=== PATIENT | male | born 2000 | race Caucasian/White ===

== ENCOUNTER 2025-05-06 10:04 | Emergency (ER) | payer OTHER ==
[~2025-05-06] VITALS: Ht 177.8 cm; Wt 81.8 kg
[2025-05-06] MEDS: MORPHINE 4 MG/ML 1 ML VIAL IV ONE (11:12)
[2025-05-06] MEDS: NS (Normal Saline) 0.9% 1,000 ML IV SCH (11:16)
[2025-05-06] MEDS: KETOROLAC 30 MG/ML 1 ML VIAL IV ONE (11:17)
[2025-05-06] MEDS ORDERED: HOME MED LIST COMPLETE! XX SCH (11:50)
[2025-05-06] MEDS: PERCOCET 5MG/325MG TAB PO ONE (12:37)
[2025-05-06 15:45] VITALS: BP 144/92; TEMP 97.6; O2SAT 98
== END 2025-05-06 16:28 | disposition left against medical advice (07) ==
LOC: M ED 10:04
DX: S53.124A Posterior dislocation of right ulnohumeral joint, initial encounter (principal); Y92.9 Unspecified place or not applicable; Y93.75 Activity, martial arts; Y99.9 Unspecified external cause status; Z53.9 Procedure and treatment not carried out, unspecified reason
CPT/HCPCS: 24605; 73070; 73080; 73200; 93041; 94760; 96361; 96374; 96375; 99285; J1885